=== PATIENT | male | born 1990 | race Caucasian/White ===

== ENCOUNTER 2020-01-23 09:57 | Emergency (ER) | payer OTHER ==
[~2020-01-23] VITALS: Ht 177.8 cm; Wt 90.0 kg
[2020-01-23 10:00] VITALS: BP 120/63
--- NOTE | 2020-01-23 10:20 | NUR ---
PT STATES HE RECENTLY MOVED HERE FROM [facility] AND HAS TRIED TO MAKE AN APPT WITH A PCP TO REFILL HIS RX'S BUT IT WOULD BE A MONTH OUT. STATES HE HAS ANXIETY AND INSOMNIA. STATES HE CURRENTLY TAKES XANAX, TRAZODONE & CELEXA.
--- NOTE | 2020-01-23 10:22 | NUR ---
BRIAN DIETRICH AT BS NOW.
== END 2020-01-23 10:59 | disposition home or self-care (01) ==
LOC: ED 10:58
DX: G47.00 Insomnia, unspecified (principal); Z76.0 Encounter for issue of repeat prescription
CPT/HCPCS: 99281